=== PATIENT | male | born 1980 | race Hispanic/Latino ===

== ENCOUNTER 2024-08-21 09:29 | Emergency (ER) | payer OTHER ==
[~2024-08-21] VITALS: Ht 162.6 cm; Wt 78.9 kg
[2024-08-21] MEDS ORDERED: IBUPROFEN 600 MG TAB PO ONE (10:15)
[2024-08-21] MEDS ORDERED: HYDROCODONE/ACETA 7.5/325 TAB PO ONE (10:15)
[2024-08-21] MEDS ORDERED: DIPHTH,PERTUSS(ACELL),TET VAC 0.5 ML SYRINGE IM ONE (10:30)
[2024-08-21] MEDS ORDERED: HYDROCODON-ACE1 EA11 PO (11:17)
[2024-08-21 11:50] VITALS: BP 134/86
== END 2024-08-21 11:50 | disposition home or self-care (01) ==
LOC: ED 09:29
DX: S62.232A Other displaced fracture of base of first metacarpal bone, left hand, initial encounter for closed fracture (principal); S40.012A Contusion of left shoulder, initial encounter; S09.90XA Unspecified injury of head, initial encounter; W17.89XA Other fall from one level to another, initial encounter
CPT/HCPCS: 71045; 73030; 73140; 90471; 90715; 99283-25; A9270